=== PATIENT | female | born 1990 | race Hispanic/Latino ===

== ENCOUNTER 2018-11-24 17:56 | Emergency (ER) | payer MEDICAID ==
[2018-11-24 18:07] VITALS: RESP 18; O2SAT 100
[2018-11-24 18:40] LABS: BASO # 0.1 K/uL (0.0-0.2); BASO % 0.5 % (0.0-2.0); EOS # 0.3 K/uL (0.0-0.7); EOS % 2.1 % (0.0-4.0); HEMOGLOBIN 13.4 g/dL (11.0-16.0); LYMPH % 22.2 % (20.0-40.0); MEAN CELL VOLUME 88.5 fL (81.0-99.0); MEAN CORPUSCULAR HEMOGLOBIN 30.2 pg (27.0-31.0); MEAN CORPUSCULAR HGB CONC 34.1 g/dL (33.0-37.0); MEAN PLATELET VOLUME 6.9 fL (7.2-11.7); MONO # 0.9 K/uL (0.0-0.8); MONO % 6.4 % (0.0-10.0); NEUT # 9.1 K/uL (1.8-7.0); NEUT % 68.8 % (50.0-75.0); RBC 4.43 Mil/uL (3.80-5.20); RED CELL DISTRIBUTION WIDTH 13.2 % (11.5-14.5); WHITE BLOOD COUNT 13.3 K/uL (4.8-10.8)
[2018-11-24 18:41] LABS: HCG,QUALITATIVE URINE NEGATIVE (NEGATIVE)
[2018-11-24 18:45] LABS: SQUAMOUS EPITHIAL 11 /hpf (0-5); URINE BILIRUBIN NEGATIVE (NEGATIVE); URINE BLOOD 1+ (NEGATIVE); URINE CLARITY Hazy (Clear); URINE COLOR Amber (YELLOW); URINE GLUCOSE (UA) NORMAL (Normal); URINE LEUKOCYTE ESTERASE NEG Leu/uL (Negative); URINE PROTEIN 1+ mg/dL (NEGATIVE); URINE UROBILINOGEN NORMAL mg/dL (0.2-1.0)
--- NOTE | 2018-11-24 18:59 | C.PDOC ---
History Of Present Illness 28 year old female presents to the ED requesting opiate detoxification. She reports her last use was today. Patient denies any SI/HI, hallucinations, or current physical complaints. Time Seen by Provider: 11/24/18 18:00 Chief Complaint (Nursing): Substance Abuse History Per: Patient History/Exam Limitations: no limitations Onset/Duration Of Symptoms: Hrs Current Symptoms Are (Timing): Still Present Suicide/Self Injury Attempted (Context): None Modifying Factor(s): Narcotics Severity: Moderate Associated Symptoms: denies: Suicidal Thoughts, Suicidal Plan Past Medical History Reviewed: Historical Data, Nursing Documentation, Vital Signs Vital Signs: Last Vital Signs Temp 98.8 F 11/24/18 18:05 Pulse 73 11/24/18 18:05 Resp 18 11/24/18 18:05 BP 107/74 11/24/18 18:05 Pulse Ox 100 11/24/18 18:05 Primary Care Provider: FAMILY PROVIDER,NO - Medical History PMH: No Chronic Diseases Surgical History: No Surg Hx Family History: States: No Known Family Hx - Social History Hx Alcohol Use: Yes Hx Substance Use: Yes (heroin/oxycodone) - Immunization History Hx Tetanus Toxoid Vaccination: No Hx Influenza Vaccination: No Hx Pneumococcal Vaccination: No Review Of Systems Constitutional: Negative for: Fever, Chills Cardiovascular: Negative for: Chest Pain Respiratory: Negative for: Shortness of Breath Gastrointestinal: Negative for: Nausea, Vomiting, Abdominal Pain, Diarrhea Psych: Negative for: Suicidal ideation Physical Exam - Physical Exam Appears: Well, Non-toxic, No Acute Distress Skin: Warm, Dry, No Rash Head: Normacephalic Eye(s): bilateral: Normal Inspection, PERRL, EOMI Oral Mucosa: Moist Neck: Supple Cardiovascular: Rhythm Regular Respiratory: Normal Breath Sounds, No Rales, No Rhonchi, No Wheezing Gastrointestinal/Abdominal: Normal Exam, Bowel Sounds, Soft, No Tenderness Neurological/Psych: Oriented x3 Gait: Steady ED Course And Treatment - Laboratory Results Result Diagrams: 11/24/18 18:35 11/24/18 18:35 Lab Results: Urine Color [place] (YELLOW) 11/24/18 18:35 Urine Clarity Hazy (Clear) 11/24/18 18:35 Urine pH 7.0 (5.0-8.0) 11/24/18 18:35 Ur Specific [place] 1.028 (1.003-1.030) 11/24/18 18:35 Urine Protein 1+ mg/dL (NEGATIVE) H 11/24/18 18:35 Urine Glucose (UA) Normal mg/dL (Normal) 11/24/18 18:35 Urine Ketones Negative mg/dL (NEGATIVE) 11/24/18 18:35 Urine Blood 1+ (NEGATIVE) H 11/24/18 18:35 Urine Nitrate Negative (NEGATIVE) 11/24/18 18:35 Urine Bilirubin Negative (NEGATIVE) 11/24/18 18:35 Urine Urobilinogen Normal mg/dL (0.2-1.0) 11/24/18 18:35 Ur Leukocyte Esterase Neg Brenna/uL (Negative) 11/24/18 18:35 Urine WBC (Auto) 1 /hpf (0-5) 11/24/18 18:35 Urine RBC (Auto) 7 /hpf (0-3) H 11/24/18 18:35 Ur Squamous Epith Cells 11 /hpf (0-5) H 11/24/18 18:35 Urine HCG, Qual Negative (NEGATIVE) 11/24/18 18:35 Urine HCG, Qual Negative (NEGATIVE) 11/24/18 18:35 O2 Sat by Pulse Oximetry: 100 (RA) Pulse Ox Interpretation: Normal Progress Note: Bloodwork, UA, UPreg, UDS ordered and reviewed. 19:30 - Patient medically cleared. 20:00- Patient does not meet admission criteria for detox as per crisis. Patient discharged. She understands she should return to ED if symptoms worsen. Disposition - Disposition [facility]errals: [facility]Outside] [facility] Disposition: HOME/ ROUTINE Disposition Time: 20:00 Condition: STABLE Instructions: Opioid Use Disorder Forms: [facility] (Indonesian) Print Language: DUTCH - Clinical Impression Clinical Impression: Drug abuse - Scribe Statement The provider has reviewed the documentation as recorded by the Scribe Hilary Vega All medical record entries made by the Scribe were at my direction and personally dictated by me. I have reviewed the chart and agree that the record accurately reflects my personal performance of the history, physical exam, medical decision making, and the department course for this patient. I have also personally directed, reviewed, and agree with the discharge instructions and disposition.
[2018-11-24 19:01] LABS: ALB/GLOB RATIO 1.4 (1.0-2.1); ALBUMIN 4.6 g/dL (3.5-5.0); ALT/SGPT 20 U/L (9-52); AST/SGOT 30 U/L (14-36); BLOOD UREA NITROGEN 10 mg/dL (7-17); GFR NON-AFRICAN AMERICAN > 60
[2018-11-24 19:04] LABS: BARBITURATES, UR NEGATIVE (NEGATIVE); BENZODIAZEPINES, UR NEGATIVE (NEGATIVE); OPIATES, UR NEGATIVE (NEGATIVE); PHENCYCLIDINE, UR NEGATIVE (NEGATIVE)
[2018-11-24 21:05] VITALS: BP 109/69; PULSE 80; TEMP 98.4
== END 2018-11-24 21:17 | disposition home or self-care (01) ==
LOC: C.ER 17:56
DX: F19.10 Other psychoactive substance abuse, uncomplicated (principal)